=== PATIENT | female | born 1975 | race African-American/Black ===

== ENCOUNTER 2022-12-08 09:30 | Observation (INO) ==
[2022-12-08] MEDS ORDERED: ACETAMINOPHEN 325 MG TAB PO STA (10:45)
[2022-12-08] MEDS ORDERED: SODIUM CHLORIDE 0.9% 1000ML 2,000 ML IV ONE (10:45)
--- NOTE | 2022-12-08 10:58 | Emergency Department Note ---
Impression & Plan Fever, Tachycardia, Abdominal pain, Hyperglycemia ED Provider Note NAME: BHAVANI COLLINS AGE: 47 SEX: F : 1975 ARRIVES VIA: Walk-In INFORMANT: Patient ED PROVIDER(S): Dao Blanco DO CHIEF COMPLAINT: Fever and abdominal pain HPI: Patient is a 47-year-old female who presents to the ER for a fever and abdominal pain. Symptoms started this morning around 5 AM. Located in the right lower quadrant. Associate with nausea. She admits to diffuse myalgias and arthralgias. No headache or change in vision. No chest pain or shortness of breath currently. This morning when she was very cold and felt her heart racing she did feel little short of breath. No dysuria, urgency, or frequency. No other exacerbating or remitting factors. No history of diabetes. She is not sexually active. No vaginal bleeding or vaginal discharge. PAST MEDICAL HISTORY:See Below PAST SURGICAL HISTORY:See Below FAMILY HISTORY:See Below SOCIAL HISTORY:See Below HOME MEDICATIONS:See Below ALLERGIES:See Below VITALS:See Below PHYSICAL EXAMINATION: GENERAL: Sitting up in bed, alert, slightly shaking, ill-appearing EYE EXAM: normal conjunctiva. OROPHARYNX: Dry mucous membranes NECK: supple, no nuchal rigidity, no adenopathy, non-tender LUNGS: Clear to auscultation. Normal chest wall mechanics HEART: Tachycardic, S1 normal and S2 normal ABDOMEN: abdomen soft, TTP in RLQ, normo-active bowel sounds, no masses, no rebound or guarding. UPPER EXTREMITIES: upper extremities are grossly normal. LOWER EXTREMITIES: No pitting edema. NEURO EXAM: Normal sensorium, cranial nerves II-XII grossly intact, normal speech, no gross weakness of arms, no gross weakness of legs. MEDICAL DECISION MAKING: Patient is a 47-year-old female who presents to the ER for fever, tachycardia an d right lower quadrant abdominal pain associating with myalgias arthralgias and shaking chills. IV was established blood work was obtained. Labs show leukocytosis of 12.4 thousand. Mild anemia 10.7. BMP with mild hyponatremia at 133. Glucose was significantly elevated at 333. LFTs bilirubin was unremarkable. Lipase was normal. hCG was negative. UA without signs of infection. CT abdomen pelvis showed normal appendix and some abnormalities within the uterus. She is not sexually active. Denies any vaginal bleeding vaginal discharge. She was covered with IV Rocephin, 2 L of IV fluids. She was given Toradol and Tylenol. Did add on a BioFire as well as lactic acid and blood cultures following the negative CT of the belly as initially I thought this was going to be consistent with appendicitis. Patient admits to increased thirst and urination over the past 1 to 2 months. Do favor that she also has new onset diabetes. Discussed with hospitalist for further evaluation manageme nt treatment. Triage Nursing notes reviewed. Limited review of prior medical records performed Vital Signs: reviewed and remarkable for febrile and tachycardic Differential diagnosis: Differential diagnosis includes etiologies such as sepsis, UTI, pneumonia, metabolic, electrolyte abnormalities, cardiac sources, intracerebral event, toxicologic, neurological, as well as others were entertained. ER treatment provided: See below Diagnostics interpreted by me include EKG and cardiac monitoring as listed below: -Cardiac Monitoring: An order was placed for continuous cardiac monitoring. The monitor shows a rate of 110 with sinus rhythm. -ECG: Sinus rhythm minimal Left axis No PVCs Septal Q waves -Laboratory studies:Interpreted by me as stated above in MDM and shown below. Imaging studies: Xrays: As interpreted by me: Portable AP upright 1 view of the chest shows no focal infiltrate CTs show: CT abdomen pelvis showed abnormal uterus. Consultation(s): As described in [facility] Procedures:none Critical Care: None Past Med/Surg History Social History Smoking Status: Former smoker Tobacco Type: Cigarettes Feels Safe at Home: Yes Results & Data (ED) Vital Signs Vital Signs - 24 hr 12/08/22 09:57 12/08/22 12:09 Temperature 38.0 C H Temperature Source Skin Pulse Rate 119 H Pulse Rate [Apical] 100 H Respiratory Rate 20 18 Respiratory Effort / Characteristics Non-Labored Spontaneous Respiratory Depth Normal Respiratory Pattern Regular Blood Pressure 157/89 H Blood Pressure [Right Arm] 145/85 H Blood Pressure Mean 111 Blood Pressure Mean [Right Arm] 105 Pulse Oximetry 100 98 Oxygen Delivery Method Room Air Sepsis Recent Fever Within 48 Hours No Sepsis New/Unexplained Change in Mental Status N/A Sepsis Action Taken by Nursing No Action Required Laboratory Data 12/08/22 10:53 12/08/22 10:53 Lab Results 12/08/22 12/08/22 12/08/22 Range/Units 10:53 10:53 10:53 WBC 12.40 H (4.8-10.8) K/ul RBC 4.20 (4.20-5.40) M/uL Hgb 10.7 L (12.0-16.0) g/dl Hct 33.4 L (37.0-47.0) % MCV 79.5 L (80.0-100.0) fL MCH 25.5 (25.0-34.0) pg MCHC 32.0 (32.0-36.0) g/dL RDW Std Deviation 42.5 (36.4-46.3) fL RDW Coeff of Shikha 14.6 H (11.5-14.5) % Plt Count 463 H (130-400) K/uL MPV 10.1 (9.4-12.4) fL Immature Gran % (Auto) 0.4 % Neut % (Auto) 88.0 % Lymph % (Auto) 5.6 % [place] % (Auto) 5.7 % Eos % (Auto) 0.0 % Baso % (Auto) 0.3 % Neut # (Auto) 10.91 H (1.40-6.50) K/uL Lymph # (Auto) 0.69 L (1.2-3.4) K/uL [place] # (Auto) 0.71 H (0.11-0.59) K/uL Eos # (Auto) 0.00 (0-0.50) K/uL Baso # (Auto) 0.04 (0-0.2) K/uL Immature Gran # (Auto) 0.05 (0.01-0.20) K/uL Sodium 133 L (136-145) mmol/L Potassium 3.6 (3.5-5.1) mmol/L Chloride 99 (98-107) mmol/L Carbon Dioxide 23 (21-32) mmol/L Anion Gap 11 (3-11) BUN 8 (6-23) mg/dl Creatinine 0.63 (0.6-1.2) mg/dl Est Cr Clr Drug Dosing 126.1 ml/min Est GFR ( Amer) 124.7 ml/min Est GFR (Non-Af Amer) 107.6 ml/min BUN/Creatinine Ratio 12.7 (10-20) Glucose 333 H* (70-99(Fasting)) mg/dl POC Glucose (70-99) mg/dl Calcium 9.3 (8.6-10.3) mg/dl Total Bilirubin 0.5 (0.2-1.0) mg/dl AST 14 (13-39) U/L ALT 16 (7-52) U/L Alkaline Phosphatase 85 (34-104) U/L Total Protein 7.9 (6.0-8.3) gm/dl Albumin 4.4 (3.4-5.0) gm/dl Globulin 3.5 (2.5-4.0) gm/dl Albumin/Globulin Ratio 1.3 (0.9-2) Lipase 17 (11-82) U/L HCG, Qual Negative (Negative) Urine Color Urine Appearance (Clear) Urine pH (4.5-7.5) Ur Specific [place] (1.000-1.030) Urine Protein (Negative) Urine Glucose (UA) (Negative) Urine Ketones (Negative) Urine Blood (Negative) Urine Nitrite (Negative) Urine Bilirubin (Negative) Urine Urobilinogen (Negative) Ur Leukocyte Esterase (Negative) 12/08/22 12/08/22 Range/Units 11:28 13:13 WBC (4.8-10.8) K/ul RBC (4.20-5.40) M/uL Hgb (12.0-16.0) g/dl Hct (37.0-47.0) % MCV (80.0-100.0) fL MCH (25.0-34.0) pg MCHC (32.0-36.0) g/dL RDW Std Deviation (36.4-46.3) fL RDW Coeff of Shikha (11.5-14.5) % Plt Count (130-400) K/uL MPV (9.4-12.4) fL Immature Gran % (Auto) % Neut % (Auto) % Lymph % (Auto) % [place] % (Auto) % Eos % (Auto) % Baso % (Auto) % Neut # (Auto) (1.40-6.50) K/uL Lymph # (Auto) (1.2-3.4) K/uL [place] # (Auto) (0.11-0.59) K/uL Eos # (Auto) (0-0.50) K/uL Baso # (Auto) (0-0.2) K/uL Immature Gran # (Auto) (0.01-0.20) K/uL Sodium (136-145) mmol/L Potassium (3.5-5.1) mmol/L Chloride (98-107) mmol/L Carbon Dioxide (21-32) mmol/L Anion Gap (3-11) BUN (6-23) mg/dl Creatinine (0.6-1.2) mg/dl Est Cr Clr Drug Dosing ml/min Est GFR ( Amer) ml/min Est GFR (Non-Af Amer) ml/min BUN/Creatinine Ratio (10-20) Glucose (70-99(Fasting)) mg/dl POC Glucose 301 H* (70-99) mg/dl Calcium (8.6-10.3) mg/dl Total Bilirubin (0.2-1.0) mg/dl AST (13-39) U/L ALT (7-52) U/L Alkaline Phosphatase (34-104) U/L Total Protein (6.0-8.3) gm/dl Albumin (3.4-5.0) gm/dl Globulin (2.5-4.0) gm/dl Albumin/Globulin Ratio (0.9-2) Lipase (11-82) U/L HCG, Qual (Negative) Urine Color Yellow Urine Appearance Clear (Clear) Urine pH 7.0 (4.5-7.5) Ur Specific [place] 1.032 H (1.000-1.030) Urine Protein Negative (Negative) Urine Glucose (UA) 3+ H (Negative) Urine Ketones 2+ H (Negative) Urine Blood Negative (Negative) Urine Nitrite Negative (Negative) Urine Bilirubin Negative (Negative) Urine Urobilinogen Negative (Negative) Ur Leukocyte Esterase Negative (Negative) Administered Medications Discontinued Medications Acetaminophen (Acetaminophen 325 Mg Tab) 650 mg PO NOW STA Stop: 12/08/22 10:46 Last Admin: 12/08/22 10:57 Dose: 650 mg Documented By: ADAN Sodium Chloride (Nss 1000ml) 2,000 mls @ 999 mls/hr IV .Q2H1M ONE Stop: 12/08/22 12:45 Last Infusion: 12/08/22 13:24 Dose: 0 mls/hr Documented By: Admin: 12/08/22 10:57 Dose: 999 mls/hr Documented By: ADAN Cefoxitin Sodium (Mefoxin) 2,000 mg in 60 mls @ 100 mls/hr IV NOW STA Stop: 12/08/22 13:22 Last Admin: 12/08/22 13:06 Dose: Not Given Documented By: ADAN Ioversol (Optiray 320 100ml) 92 ml IV ONCE ONE Stop: 12/08/22 12:32 Last Admin: 12/08/22 12:31 Dose: 92 ml Documented By: SERA Ondansetron HCl (Ondansetron Inj 2 Mg/Ml 2 Ml Vial) 4 mg IV NOW STA Stop: 12/08/22 12:48 Last Admin: 12/08/22 13:06 Dose: Not Given Documented By: ADAN Imaging Data Radiologist's Impression: Chest X-Ray 12/08/22 10:19 SINGLE VIEW CHEST CLINICAL HISTORY: Epigastric abdominal pain. FINDINGS: 2 AP, portable, upright chest radiographs are obtained. No prior studies are available for comparison at the time of dictation. The cardiomediastinal silhouette is unremarkable. The lungs and pleural spaces are clear. No pneumothorax is seen. The bony thorax is grossly intact. IMPRESSION: No active disease in the chest. ACT 112: Negative or not required by law. Electronically signed by: Tray Borrego M.D. 12/08/2022 11:24 AM Abdomen/Pelvis CT 12/08/22 10:55 CT abd pelvis IV con only CLINICAL HISTORY: rlq abd pain fever TECHNIQUE: Helical axial images of the abdomen and pelvis were obtained and displayed. Automated dose lowering techniques and/or adjustment according to patient size were utilized for this exam. This exam was performed with intravenous contrast. CT DOSE: 1262.85 mGy.cm COMPARISON: None available at the time of this dictation. FINDINGS: Lower chest: No acute abnormality. Liver: Unremarkable. No focal lesions are seen. Gallbladder and biliary tree: No calcified gallstones. Normal caliber wall. No intra- or extrahepatic biliary ductal dilation. Pancreas: Unremarkable, no focal lesions. Spleen: Splenule is incidentally noted. Adrenals: Unremarkable. Kidneys and ureters: Unremarkable. Bladder: Unremarkable. Reproductive organs: Markedly enlarged uterus is seen with heterogeneous contents. Bowel: The appendix is normal. Fluid is in the esophagus. Lymph nodes Retroperitoneal: Unremarkable. Pelvic: Unremarkable. Mesenteric: Unremarkable. Peritoneum: Normal. Vessels: Unremarkable. Abdominal wall: Unremarkable. Bones: Degenerative changes in the visualized spine. IMPRESSION: 1. There is heterogeneity of the uterus. This likely reflects fibroid disease. Endometrium is unremarkable despite highly limited visualization. 2. Otherwise no acute abnormalities, the appendix is normal. ACT 112: Negative or not required by law. Electronically signed by: Sean Reid M.D. 12/08/2022 1:00 PM Discharge Plan Visit Data Chief Complaint: Illness Stated Complaint: RACING HEART, ACHEY, FEVER, SOB, WEAKNESS ED Provider: Dao Blanco Discharge Problem: Fever, Tachycardia, Abdominal pain, Hyperglycemia Forms Stand Alone Forms: [facility] Referrals Referrals: Rhonda Muniz D.O. [Primary Care Provider] -
[2022-12-08] MEDS ORDERED: KETOROLAC TROMETHAMINE 15 MG/ML VIAL IV ONE (10:59)
[2022-12-08 11:12] LABS: Basophils # (auto) 0.04 K/uL (0-0.2); Basophils % (auto) 0.3 %; Hematocrit (blood only) 33.4 % (37.0-47.0); Hemoglobin 10.7 g/dl (12.0-16.0); Immature Granulocytes # (auto) 0.05 K/uL (0.01-0.20); Immature Granulocytes % (auto) 0.4 %; Lymphocytes # (auto) 0.69 K/uL (1.2-3.4); Lymphocytes % (auto) 5.6 %; Mean Corpuscular Hemoglobin 25.5 pg (25.0-34.0); Mean Corpuscular Volume 79.5 fL (80.0-100.0); Mean Platelet Volume 10.1 fL (9.4-12.4); Monocytes # (auto) 0.71 K/uL (0.11-0.59); Monocytes % (auto) 5.7 %; Neutrophils # (auto) 10.91 K/uL (1.40-6.50); Platelet Count 463 K/uL (130-400); RDW Coefficient of Variation 14.6 % (11.5-14.5); RDW Standard Deviation 42.5 fL (36.4-46.3)
[2022-12-08 11:25] LABS: Pregnancy Test, Serum Negative (Negative)
--- NOTE | 2022-12-08 11:25 | XRay Report ---
SINGLE VIEW CHEST CLINICAL HISTORY: Epigastric abdominal pain. FINDINGS: 2 AP, portable, upright chest radiographs are obtained. No prior studies are available for comparison at the time of dictation. The cardiomediastinal silhouette is unremarkable. The lungs and pleural spaces are clear. No pneumothorax is seen. The bony thorax is grossly intact. IMPRESSION: No active disease in the chest. ACT 112: Negative or not required by law. Electronically signed by: Tray Borrego M.D. 12/08/2022 11:24 AM
[2022-12-08 11:50] LABS: Albumin Globulin Ratio 1.3 (0.9-2); Albumin Level 4.4 gm/dl (3.4-5.0); BUN Creatinine Ratio 12.7 (10-20); Bilirubin,Total 0.5 mg/dl (0.2-1.0); Calcium 9.3 mg/dl (8.6-10.3); Creatinine Clr Calc Pharmacy 126.1 ml/min; Est GFR (African American) 124.7 ml/min; Est GFR (Non-African American) 107.6 ml/min; Globulin 3.5 gm/dl (2.5-4.0); Potassium 3.6 mmol/L (3.5-5.1); Total Protein 7.9 gm/dl (6.0-8.3)
[2022-12-08 12:20] LABS: Appearance Urine Clear (Clear); Bilirubin Urine Negative (Negative); Blood Urine Negative (Negative); Color Urine Yellow; Glucose Urine UA 3+ (Negative); Ketones Urine 2+ (Negative); Leukocyte Esterase Urine Negative (Negative); Nitrite Urine Negative (Negative); Protein Urine Negative (Negative); Specific Gravity Urine 1.032 (1.000-1.030); Urobilinogen Urine Negative (Negative)
[2022-12-08] MEDS ORDERED: OPTIRAY 320 100ml IV ONE (12:31)
[2022-12-08] MEDS ORDERED: cefOXitin 2,000 MG/60 ML BAG IV STA (12:47)
[2022-12-08] MEDS ORDERED: ONDANSETRON INJ 2 MG/ML 2 ML VIAL IV STA (12:47)
--- NOTE | 2022-12-08 13:02 | CT Scan Report ---
CT abd pelvis IV con only CLINICAL HISTORY: rlq abd pain fever TECHNIQUE: Helical axial images of the abdomen and pelvis were obtained and displayed. Automated dose lowering techniques and/or adjustment according to patient size were utilized for this exam. This e xam was performed with intravenous contrast. CT DOSE: 1262.85 mGy.cm COMPARISON: None available at the time of this dictation. FINDINGS: Lower chest: No acute abnormality. Liver: Unremarkable. No focal lesions are seen. Gallbladder and biliary tree: No calcified gallstones. Normal caliber wall. No intra- or extrahepatic biliary ductal dilation. Pancreas: Unremarkable, no focal lesions. Spleen: Splenule is incidentally noted. Adrenals: Unremarkable. Kidneys and ureters: Unremarkable. Bladder: Unremarkable. Reproductive organs: Markedly enlarged uterus is seen with heterogeneous contents. Bowel: The appendix is normal. Fluid is in the esophagus. Lymph nodes Retroperitoneal: Unremarkable. Pelvic: Unremarkable. Mesenteric: Unremarkable. Peritoneum: Normal. Vessels: Unremarkable. Abdominal wall: Unremarkable. Bones: Degenerative changes in the visualized spine. IMPRESSION: 1. There is heterogeneity of the uterus. This likely reflects fibroid disease. Endometrium is unrema rkable despite highly limited visualization. 2. Otherwise no acute abnormalities, the appendix is normal. ACT 112: Negative or not required by law. Electronically signed by: Sean Reid M.D. 12/08/2022 1:00 PM
[2022-12-08] MEDS ORDERED: NovoLIN-R INSULIN PER UNIT CHARGE IV STA (13:32)
[2022-12-08] MEDS ORDERED: cefTRIAXone SODIUM 2,000 MG/70 ML BAG IV STA (13:40)
--- NOTE | 2022-12-08 14:21 | History & Physical Report ---
Date of Service December 08, 2022 Assessment & Plan (1) Fever: (2) Hyperglycemia: (3) Tachycardia: (4) Abdominal pain: (5) Anemia: Plan This is a 47 y/o female with a history of uterine fibroids who presented to the ED today with acute onset of fever, weakness, fatigue, and abdominal pain earlier this morning. Work-up in the ED revealed a blood glucose >300 as well as anemia with Hgb of 10.7. CT was negative for appendicitis but showed probable uterine fibroids, which confirms that she has a history of previously. Presentation consistent with new-onset DM - A1c is pending. Unclear potential infectious etiology of fever, leukocytosis, abdominal pain and nausea - BioFire and Lyme testing pending. - Observe in med telemetry overnight due to hyperglycemia, unexplained fever, tachycardia - Insulin subQ to get sugars under control - will need close outpatient f/u with PCP for longer term management - Consult healthcare educator for new diagnosis DM - NPO for now but once sugars improved, advance diet as tolerated to diabetic diet - IVF hydration - Anemia work-up to include iron studies, retic count, sickle cell trait Pt seen and reviewed with collaborating physician, Dr. Avelar. Plan of care discussed and as outlined above. Code Status: Full Code DVT Prophylaxis: SCDs for now Chong Quintana PA-C History of Present Illness Chief Complaint: fever, abdominal pain Primary Care Provider: Rhonda Muniz This is a 47 y/o female with a history of uterine fibroids presented to the ED today with fever, abdominal pain, and myalgias. Pt has been camping at a retreat center in the [facility] for the last ten days. This morning, she woke up not feeling well, achy. Then developed abdominal pain on the right side with associated nausea. Had some shortness of breath this morning that has since improved. Had palpitations but denies chest pain. Became very weak and tired and developed a fever so came to the ED for evaluation. She was around 150-200 people for the last several days including several children who may have been sick with non-specific symptoms. At present feeling somewhat improved though still some nausea. Had some vomiting in the CT scan today but none since getting back to her room. For the last few months, she notes a dry mouth and has drinking fluids excessively. Urinating more than usual as well. Feels like overheats easier than she did previously. Does not routinely follow with PCP - last visit 2.5 years ago. No prior history of diabetes. Notes that her RLE has pruritic but no significant erythema or rash - has been using itch cream. No known tick bites but was out in the [place]. No diarrhea. Menstrual cycle variable - heavy at times but not consistently. Told around age 41 that she was anemic. Took iron supplements previously but not taking at present. Allergies Allergy/AdvReac Type Severity Reaction Status Date / Time No Known Allergies Allergy Unverified 12/08/22 14:41 Home Medications Medication Instructions Recorded Confirmed Type No Known Home Medications 12/08/22 12/08/22 History Past Med/Surg History Medical History Uterine fibroid Surgical History History of removal of cyst Hx of eye surgery left with vision out of only one eye Family History Mother Diabetes Brother Diabetes Social History Smoking Status: Former smoker Tobacco Type: Cigarettes Hx Alcohol Use: No Hx Substance Use: No Feels Safe at Home: Yes Review of Systems Review of Systems: All systems reviewed & are unremarkable except as noted in HPI & below Constitutional: + fever, + fatigue, + weakness and + anorexia Ear, Nose, Mouth, Throat: no nasal congestion, no nasal discharge and no sore throat Respiratory: no cough Cardiovascular: + palpitations; no chest pain, no lightheadedness and no syncope Gastrointestinal: as per Subjective / HPI Genitourinary: + urinary frequency Musculoskeletal: + myalgia Integumentary: no yellowing of the skin Neurologic: + generalized weakness; no numbness and no dizziness Psychiatric: no depression and no anxiety Physical Exam Constitutional: well developed and well nourished; no acute distress Eyes: + anicteric sclerae ENMT: external ear and nose normal, oropharynx normal Neck: trachea midline Respiratory: no respiratory distress and no labored breathing Auscultation: lungs clear to auscultation bilaterally; no rales, no rhonchi and no wheezes Cardiovascular: Rate/Rhythm: regular rhythm and + tachycardic Vessels: radial pulses present; no JVD Extremities: no pedal edema Gastrointestinal (Abdomen): Inspection/Auscultation: normal bowel sounds; abdomen not distended Percussion/Palpation: + abdomen tender (mild RLQ) and abdomen soft Musculoskeletal: Head/Neck/Chest: normocephalic, head atraumatic and neck supple Skin: no jaundice Neurologic: normal touch/pain/proprioception and moves all extremities; no focal motor deficits and not confused Psychiatric: A+Ox3, euthymic affect Results & Data Results & Data Vital Signs (Past 12 Hours) Vital Signs Temp Pulse Pulse Resp BP BP Pulse Ox 12/08/22 12:09 100 H 18 145/85 H 98 12/08/22 09:57 38.0 C H 119 H 20 157/89 H 100 O2 Del Method 12/08/22 12:09 12/08/22 09:57 Room Air Laboratory Results Laboratory Results - last 24 hr 12/08/22 12/08/22 12/08/22 10:53 10:53 10:53 WBC 12.40 H RBC 4.20 Hgb 10.7 L Hct 33.4 L MCV 79.5 L MCH 25.5 MCHC 32.0 RDW Std Deviation 42.5 RDW Coeff of Shikha 14.6 H Plt Count 463 H MPV 10.1 Immature Gran % (Auto) 0.4 Neut % (Auto) 88.0 Lymph % (Auto) 5.6 [place] % (Auto) 5.7 Eos % (Auto) 0.0 Baso % (Auto) 0.3 Neut # (Auto) 10.91 H Lymph # (Auto) 0.69 L [place] # (Auto) 0.71 H Eos # (Auto) 0.00 Baso # (Auto) 0.04 Immature Gran # (Auto) 0.05 Sodium 133 L Potassium 3.6 Chloride 99 Carbon Dioxide 23 Anion Gap 11 BUN 8 Creatinine 0.63 Est Cr Clr Drug Dosing 126.1 Est GFR ( Amer) 124.7 Est GFR (Non-Af Amer) 107.6 BUN/Creatinine Ratio 12.7 Glucose 333 H* POC Glucose Calcium 9.3 Total Bilirubin 0.5 AST 14 ALT 16 Alkaline Phosphatase 85 Total Protein 7.9 Albumin 4.4 Globulin 3.5 Albumin/Globulin Ratio 1.3 Lipase 17 HCG, Qual Negative Urine Color Urine Appearance Urine pH Ur Specific [place] Urine Protein Urine Glucose (UA) Urine Ketones Urine Blood Urine Nitrite Urine Bilirubin Urine Urobilinogen Ur Leukocyte Esterase 12/08/22 12/08/22 11:28 13:13 WBC RBC Hgb Hct MCV MCH MCHC RDW Std Deviation RDW Coeff of Shikha Plt Count MPV Immature Gran % (Auto) Neut % (Auto) Lymph % (Auto) [place] % (Auto) Eos % (Auto) Baso % (Auto) Neut # (Auto) Lymph # (Auto) [place] # (Auto) Eos # (Auto) Baso # (Auto) Immature Gran # (Auto) Sodium Potassium Chloride Carbon Dioxide Anion Gap BUN Creatinine Est Cr Clr Drug Dosing Est GFR ( Amer) Est GFR (Non-Af Amer) BUN/Creatinine Ratio Glucose POC Glucose 301 H* Calcium Total Bilirubin AST ALT Alkaline Phosphatase Total Protein Albumin Globulin Albumin/Globulin Ratio Lipase HCG, Qual Urine Color Yellow Urine Appearance Clear Urine pH 7.0 Ur Specific [place] 1.032 H Urine Protein Negative Urine Glucose (UA) 3+ H Urine Ketones 2+ H Urine Blood Negative Urine Nitrite Negative Urine Bilirubin Negative Urine Urobilinogen Negative Ur Leukocyte Esterase Negative Diagnostic Findings Chest X-Ray 12/08/22 10:19 SINGLE VIEW CHEST CLINICAL HISTORY: Epigastric abdominal pain. FINDINGS: 2 AP, portable, upright chest radiographs are obtained. No prior studies are available for comparison at the time of dictation. The cardiomediastinal silhouette is unremarkable. The lungs and pleural spaces are clear. No pneumothorax is seen. The bony thorax is grossly intact. IMPRESSION: No active disease in the chest. Abdomen/Pelvis CT 12/08/22 10:55 CT abd pelvis IV con only CLINICAL HISTORY: rlq abd pain fever TECHNIQUE: Helical axial images of the abdomen and pelvis were obtained and displayed. Automated dose lowering techniques and/or adjustment according to patient size were utilized for this exam. This exam was performed with intravenous contrast. CT DOSE: 1262.85 mGy.cm COMPARISON: None available at the time of this dictation. FINDINGS: Lower chest: No acute abnormality. Liver: Unremarkable. No focal lesions are seen. Gallbladder and biliary tree: No calcified gallstones. Normal caliber wall. No intra- or extrahepatic biliary ductal dilation. Pancreas: Unremarkable, no focal lesions. Spleen: Splenule is incidentally noted. Adrenals: Unremarkable. Kidneys and ureters: Unremarkable. Bladder: Unremarkable. Reproductive organs: Markedly enlarged uterus is seen with heterogeneous contents. Bowel: The appendix is normal. Fluid is in the esophagus. Lymph nodes Retroperitoneal: Unremarkable. Pelvic: Unremarkable. Mesenteric: Unremarkable. Peritoneum: Normal. Vessels: Unremarkable. Abdominal wall: Unremarkable. Bones: Degenerative changes in the visualized spine. IMPRESSION: 1. There is heterogeneity of the uterus. This likely reflects fibroid disease. Endometrium is unremarkable despite highly limited visualization. 2. Otherwise no acute abnormalities, the appendix is normal. Medications Administered Discontinued Medications Acetaminophen (Acetaminophen 325 Mg Tab) 650 mg PO NOW STA Stop: 12/08/22 10:46 Last Admin: 12/08/22 10:57 Dose: 650 mg Documented By: ADAN Sodium Chloride (Nss 1000ml) 2,000 mls @ 999 mls/hr IV .Q2H1M ONE Stop: 12/08/22 12:45 Last Infusion: 12/08/22 13:24 Dose: 0 mls/hr Documented By: Admin: 12/08/22 10:57 Dose: 999 mls/hr Documented By: ADAN Cefoxitin Sodium (Mefoxin) 2,000 mg in 60 mls @ 100 mls/hr IV NOW STA Stop: 12/08/22 13:22 Last Admin: 12/08/22 13:06 Dose: Not Given Documented By: ADAN Ioversol (Optiray 320 100ml) 92 ml IV ONCE ONE Stop: 12/08/22 12:32 Last Admin: 12/08/22 12:31 Dose: 92 ml Documented By: SERA Ondansetron HCl (Ondansetron Inj 2 Mg/Ml 2 Ml Vial) 4 mg IV NOW STA Stop: 12/08/22 12:48 Last Admin: 12/08/22 13:06 Dose: Not Given Documented By: ADAN Code Status & VTE Plan VTE Prophylaxis Plan VTE Prophylaxis will be ordered: Yes Supervising Physician Co-Signing Physician Notes I was present Chong Quintana PA-C during the history and exam. I discussed the case with Chong Quintana PA-C and agree with the findings and plan as documented in the H&P. In short, Ms. Zuleyma Vogel is a 47 year old woman with remote history of menorrhagia 2/2 possible fibroids c/b chronic anemia who presented due to feeling generally unwell, with subjective fever and weakness. Patient endorses ongoing history of polydipsia and polyuria x 1 month. Patient notes family history of DMII. Labs notable for hyperglycemia and ketones in urine, however, no gap acidosis or low bicarb on inital labs. Aggressive IVF, NPO, and basal insulin regimen with pharmacy follow up/healthcare educator on consult.
[2022-12-08] MEDS ORDERED: KETOROLAC TROMETHAMINE 15 MG/ML VIAL ONE (14:55)
[2022-12-08 16:10] LABS: Adenovirus PCR Not Detected (NotDetected); Bordetella parapertussis PCR Not Detected (NotDetected); Bordetella pertussis PCR Not Detected (NotDetected); Chlamydia pneumoniae PCR Not Detected (NotDetected); Coronavirus 229E PCR Not Detected (NotDetected); Coronavirus CoV-2 (COVID19)PCR Not Detected (NotDetected); Coronavirus HKU1 PCR Not Detected (NotDetected); Coronavirus NL63 PCR Not Detected (NotDetected); Coronavirus OC43PCR Not Detected (NotDetected); Human Metapneumovirus PCR Not Detected (NotDetected); Influenza A PCR Not Detected (NotDetected); Influenza B PCR Not Detected (NotDetected); Mycoplasma pneumoniae PCR Not Detected (NotDetected); Parainfluenza Virus 1 PCR Not Detected (NotDetected); Parainfluenza Virus 2 PCR Not Detected (NotDetected); Parainfluenza Virus 3 PCR Not Detected (NotDetected); Parainfluenza Virus 4 PCR Not Detected (NotDetected); Respiratory Syncytial VirusPCR Not Detected (NotDetected); Rhinovirus/Enterovirus PCR Not Detected (NotDetected)
[2022-12-08 16:12] LABS: Lyme Ab IgG w/WB Rflx Negative (Negative); Lyme Ab IgM w/WB Rflx Negative (Negative)
[2022-12-08] MEDS: SODIUM CHLORIDE 0.9% 1000ML 1,000 ML IV SCH (16:27)
[2022-12-08 16:47] LABS: Estimated Average Glucose 309 mg/dl; Hemoglobin A1C 12.4 % (4.5-5.6)
[2022-12-08] MEDS ORDERED: PHARMACY GLYCEMIC MGMT CONSULT PRN (18:06)
[2022-12-08] MEDS ORDERED: GLUCOSE 40% GEL 15 GM TUBE PO PRN (18:06)
[2022-12-08] MEDS ORDERED: GLUCAGON FOR INJ 1 MG VIAL SQ PRN (18:06)
[2022-12-08] MEDS ORDERED: GLUCOSE 10 TAB/TUBE PO PRN (18:06)
[2022-12-08] MEDS ORDERED: CARBOHYDRATES FOR HYPOGLYCEMIA PO PRN (18:06)
[2022-12-08] MEDS ORDERED: DEXTROSE 50% 50 ML SYRINGE IV PRN (18:06)
[2022-12-08] MEDS ORDERED: LANTUS PER UNIT CHARGE SC ONE (18:30)
[2022-12-08] MEDS: INSULIN ASPART PER UNIT CHARGE SC SCH ×2 (19:16→21:08)
[2022-12-09] MEDS: INSULIN ASPART PER UNIT CHARGE SC SCH ×7 (00:34→23:48)
[2022-12-09] MEDS: SODIUM CHLORIDE 0.9% 1000ML 1,000 ML IV SCH (00:35)
--- NOTE | 2022-12-09 05:53 | Electrocardiogram Report ---
Test Reason : Blood Pressure : / mmHG Vent. Rate : 109 BPM Atrial Rate : 109 BPM P-R Int : 152 ms QRS Dur : 094 ms QT Int : 332 ms P-R-T Axes : 043 -22 050 degrees QTc Int : 447 ms Sinus tachycardia Possible Left atrial enlargement Incomplete right bundle branch block Left ventricular hypertrophy ( R in aVL , Larry product ) Cannot rule out Septal infarct , age undetermined Abnormal ECG No previous ECGs available Confirmed by Flavio Salazar ([id number]) on 12/09/2022 5:52:48 AM Referred By: REFERRED SELF Confirmed By:Flavio Salazar
[2022-12-09 07:14] LABS: Basophils # (auto) 0.03 K/uL (0-0.2); Basophils % (auto) 0.3 %; Eosinophils # (auto) 0.01 K/uL (0-0.50); Eosinophils % (auto) 0.1 %; Hematocrit (blood only) 27.5 % (37.0-47.0); Hemoglobin 8.8 g/dl (12.0-16.0); Immature Granulocytes # (auto) 0.03 K/uL (0.01-0.20); Immature Granulocytes % (auto) 0.3 %; Lymphocytes # (auto) 1.69 K/uL (1.2-3.4); Lymphocytes % (auto) 18.2 %; Mean Corpuscular Hemoglobin 25.4 pg (25.0-34.0); Mean Corpuscular Volume 79.3 fL (80.0-100.0); Mean Platelet Volume 9.9 fL (9.4-12.4); Monocytes # (auto) 0.93 K/uL (0.11-0.59); Neutrophils # (auto) 6.62 K/uL (1.40-6.50); Neutrophils % (auto) 71.1 %; Platelet Count 356 K/uL (130-400); RDW Coefficient of Variation 14.9 % (11.5-14.5); Red Blood Count 3.47 M/uL (4.20-5.40); Reticulocyte % 1.8 % (0.5-2.0); Reticulocytes # 0.06 10^6/uL (0.02-0.10); White Blood Count 9.31 K/ul (4.8-10.8)
[2022-12-09 10:56] LABS: Folate (Folic Acid),Ser orPlas > 22.30 ng/ml (>5.38)
[2022-12-09 10:57] LABS: Vitamin B12 946 pg/ml (180-914)
--- NOTE | 2022-12-09 11:26 | Pharmacy Report ---
Pharmacy Glycemic Short Note 2 - Date of Service December 09, 2022 - Glycemic Short BSG Results (Last 24 hours): 12/08/22 12/08/22 12/08/22 10:53 13:13 19:07 Glucose 333 H* POC Glucose 301 H* 260 H 12/08/22 12/09/22 12/09/22 21:02 00:24 04:49 Glucose POC Glucose 253 H 175 H 190 H 12/09/22 08:19 Glucose POC Glucose 174 H OUTPATIENT ANTIDIABETIC REGIMEN: * n/a ASSESSMENT: * 47 year old female with hx of uterine fibroids, presenting with fever/abdominal pain and myalgias. No prior history of diabetes reported. A1c ~12% on admission. Was started on basal/bolus insulin yesterday as BSGs in 300s. * Received total of 33 units of insulin yesterday, of which 20 units were basal insulin (patient NPO) * Fasting BSG 174 mg/dL - diet orders now entered. Plan to increase to 20-25 units of basal insulin for today based upon BSG * Continue same novolog for now PLAN FOR INPATIENT GLYCEMIC CONTROL: * Hold outpatient oral diabetes medications * Basal insulin * Lantus 20-25 units daily * Bolus insulin * NovoLog per scale ACHS or Q6hrs while NPO * Goal Range: Low 120 mg/dL - High 160 mg/dL * Correction Factor: 25 mg/dL/unit * Nutritional / Prandial insulin per carb ratio of 1 unit per 8 grams CHO consumed
[2022-12-09] MEDS ORDERED: IRON SUCROSE 200 MG in 0.9 % SODIUM CHLORIDE 100 ML IV ONE (12:00)
[2022-12-09] MEDS ORDERED: LANTUS PER UNIT CHARGE SC ONE (12:30)
--- NOTE | 2022-12-09 14:25 | Hospitalist Progress Note ---
Date of Service December 09, 2022 Assessment & Plan (1) Fever: (2) Hyperglycemia: (3) Tachycardia: (4) Abdominal pain: (5) Anemia: Plan 47 y/o female with a history of uterine fibroids who presented to the ED 12/08 with acute onset of fever, weakness, fatigue, and abdominal pain earlier on the morning of arrival. Work-up in the ED revealed a blood glucose >300 as well as anemia with Hgb of 10.7. CT was negative for appendicitis but showed probable uterine fibroids, which confirms that she has a history of previously. Presentation consistent with new-onset DM - A1c elevated. She is being managed for the following: New onset diabetes mellitus: Patient presents with polyuria and polydipsia for several months. A1c of 12.4 at presentation. nurse educator consult. Glycemic pharmacy consult. We will possibly use insulin and metformin upon discharge with close uptitration, patient to establish with diabetic clinic on discharge. Patient has been made aware. Counseled regarding lifestyle modification. Acute fever: Tmax recorded at 38 C at presentation, ROS has been negative including no neck pain or acute changes in her bowel or bladder habits or any concern of genital infection. Bio fire negative, Lyme's screen negative. CXR and CTAP with no new acute findings. WBC elevated at 12.4 K at presentation, patient did receive Rocephin at presentation. Pro-Raymundo has been negative, temperature has been better, WBC trending down, no source of infection could be identified. Will await blood culture for at least 48 hours to result. Continue Rocephin for now. Anemia: Patient unsure if she has blood in the stool or black stool. We will get FOBT. Hemoglobin 10.7 at presentation, down trended to 8.8 today. Iron level low, patient agreeable for iron transfusion, discharged on p.o. iron. Folate level and vitamin B12 level WNL. test negative. Full code DVT prophylaxis: SCDs Admission and Anticipated Discharge Date Admission Date: December 08, 2022 Subjective Patient seen and examined at bedside. Patient was lying in bed, on room air, reports feeling better but he still feels weak. Patient reports he has been feeling polydipsia and polyuria for several months now. Patient counseled about new diagnosis of diabetes, healthcare educator has been consulted. Patient denies any new cough or chest pain or acute changes in her bowel or bladder habits or any open wounds or any concern of genital infection or neck pain or low back pain or headache. Physical Exam Physical Exam: GENERAL: Alert and oriented x3. NAD, on RA. HEENT: No pallor, no icterus. Pupils equal, round and reactive to light. Oral mucosa moist. NECK: No JVD, no neck masses. HEART: S1 and S2 heard. Regular rate and rhythm. No murmur, no gallop. RESPIRATORY SYSTEM: Normal AP diameter. No accessory muscle use. No wheezing, no crackles. ABDOMEN: Soft, bowel sounds present, nontender, no distention. CENTRAL NERVOUS SYSTEM: No facial droop. Speech is clear. Obeys simple commands. Moves extremities. EXTREMITIES: No edema, no erythema seen. Results & Data Results & Data Vital Signs (Past 12 Hours) Vital Signs Temp Pulse Pulse Pulse Resp BP Pulse Ox 12/09/22 12:20 37.7 C H 96 H 18 131/82 99 12/09/22 07:38 37.7 C H 92 H 18 128/81 98 12/09/22 07:14 88 12/09/22 04:13 37.1 C 93 H 18 135/84 99 O2 Del Method 12/09/22 12:20 Room Air 12/09/22 07:38 Room Air 12/09/22 07:14 12/09/22 04:13 Room Air
[2022-12-09] MEDS: cefTRIAXone SODIUM 2,000 MG in DEXTROSE 5% 50 ML IV SCH (17:27)
[2022-12-09] MEDS: ACETAMINOPHEN 325 MG TAB PO PRN (17:39)
[2022-12-09] MEDS ORDERED: LANTUS PER UNIT CHARGE SC SCH (21:00)
[2022-12-10] MEDS: INSULIN ASPART PER UNIT CHARGE SC SCH ×5 (04:11→20:36)
[2022-12-10 07:17] LABS: Hematocrit (blood only) 27.9 % (37.0-47.0); Hemoglobin 9.1 g/dl (12.0-16.0); Mean Corpuscular Hemoglobin 25.3 pg (25.0-34.0); Mean Corpuscular Hgb Conc 32.6 g/dL (32.0-36.0); Mean Corpuscular Volume 77.7 fL (80.0-100.0); Platelet Count 366 K/uL (130-400); Red Blood Count 3.59 M/uL (4.20-5.40); White Blood Count 7.54 K/ul (4.8-10.8)
[2022-12-10 07:28] LABS: BUN Creatinine Ratio 10.3 (10-20); Calcium 8.4 mg/dl (8.6-10.3); Phosphorus 2.5 mg/dl (2.5-4.9); Potassium 3.1 mmol/L (3.5-5.1)
--- NOTE | 2022-12-10 07:36 | Pharmacy Report ---
Pharmacy Glycemic Short Note 2 - Date of Service December 10, 2022 - Glycemic Short BSG Results (Last 24 hours): 12/09/22 12/09/22 12/09/22 08:19 12:00 16:57 Glucose POC Glucose 174 H 278 H 144 H 12/09/22 12/09/22 12/10/22 20:24 23:31 04:09 Glucose POC Glucose 203 H 94 159 H 12/10/22 06:09 Glucose 158 H POC Glucose OUTPATIENT ANTIDIABETIC REGIMEN: * n/a ASSESSMENT: 12/10 * Patient received total of 62 units of insulin yesterday, of which ~32 units were basal insulin * Fasting BSG 158 mg/dL - will continue with 30 units of basal once daily in AM * Will continue current novolog scale, however may loosen later today if BSGs improving 12/09 * 47 year old female with hx of uterine fibroids, presenting with fever/abdominal pain and myalgias. No prior history of diabetes reported. A1c ~12% on admission. Was started on basal/bolus insulin yesterday as BSGs in 300s. * Received total of 33 units of insulin yesterday, of which 20 units were basal insulin (patient NPO) * Fasting BSG 174 mg/dL - diet orders now entered. Plan to increase to 20-25 units of basal insulin for today based upon BSG * Continue same novolog for now PLAN FOR INPATIENT GLYCEMIC CONTROL: * Hold outpatient oral diabetes medications * Basal insulin * Lantus 30 units once daily in AM * Bolus insulin * NovoLog per scale ACHS or Q6hrs while NPO * Goal Range: Low 120 mg/dL - High 160 mg/dL * Correction Factor: 20 mg/dL/unit * Nutritional / Prandial insulin per carb ratio of 1 unit per 6 grams CHO consumed
[2022-12-10] MEDS ORDERED: IRON SUCROSE 400 MG in SODIUM CHLORIDE 0.9% 250 ML IV ONE (08:26)
[2022-12-10] MEDS ORDERED: POTASSIUM CHLORIDE CRTAB 20 MEQ TABCR PO STA (08:30)
[2022-12-10] MEDS: LANTUS PER UNIT CHARGE SC SCH (09:38)
[2022-12-10] MEDS: cefTRIAXone SODIUM 2,000 MG in DEXTROSE 5% 50 ML IV SCH (16:19)
--- NOTE | 2022-12-10 17:32 | Hospitalist Progress Note ---
Date of Service December 10, 2022 Assessment & Plan (1) Fever: (2) Hyperglycemia: (3) Tachycardia: (4) Abdominal pain: (5) Anemia: Plan 47 y/o female with a history of uterine fibroids who presented to the ED 12/08 with acute onset of fever, weakness, fatigue, and abdominal pain earlier on the morning of arrival. Work-up in the ED revealed a blood glucose >300 as well as anemia with Hgb of 10.7. CT was negative for appendicitis but showed probable uterine fibroids, which confirms that she has a history of previously. Presentation consistent with new-onset DM - A1c elevated. She is being managed for the following: New onset diabetes mellitus: Patient presents with polyuria and polydipsia for several months. A1c of 12.4 at presentation. art educator consult. Glycemic pharmacy consult. We will possibly use insulin and metformin upon discharge with close uptitration, patient to establish with diabetic clinic on discharge. Patient has been made aware. Counseled regarding lifestyle modification. art educator: 1.) Lantus Solostar Pen. 2.) Metformin ER. 3.) Pen Needle 32 gauge /32- to inject 1x/day (must indicate injection frequency; no brand for coverage). 4.) OneTouch Verio Test Strips- to check 3x/day (must indicate testing frequency for coverage). 5.) OneTouch Delica Lancets 33 gauge- to check 3x/day (must indicate testing frequency for coverage). Acute fever: Tmax recorded at 38 C at presentation, ROS has been negative including no neck pain or acute changes in her bowel or bladder habits or any concern of genital infection. Bio fire negative, Lyme's screen negative. CXR and CTAP with no new acute findings. WBC elevated at 12.4 K at presentation, patient did receive Rocephin at presentation. Pro-Raymundo has been negative, patient had temperature of despite 2 days of antibiotic, finally temperature is getting better, WBC trending down, no source of infection could be identified. Suspicion for tickborne illness persist, will send Anaplasma and Babesia. Blood culture no growth for 48 hours, will follow. Continue Rocephin for now. Likely will discharge on Doxy to cover for suspected tickborne illness as the patient had fever for 2 to 3 days and improved on Rocephin. Anemia: Patient unsure if she has blood in the stool or black stool. FOBT remains on collected. Hemoglobin 10.7 at presentation, stable around 9. Iron level low, patient agreeable for iron transfusion, discharge on p.o. iron. Folate level and vitamin B12 level WNL. test negative. Patient getting iron transfusion while in hospital. Full code DVT prophylaxis: SCDs Possible DC tomorrow if no further fever. Admission and Anticipated Discharge Date Admission Date: December 09, 2022 Subjective Patient seen and examined at bedside. Patient was lying in bed, on room air, reports feeling better significantly today. Patient reports he has been feeling polydipsia and polyuria for several months now. Patient counseled about new diagnosis of diabetes, childbirth educator has been consulted. Patient denies any new cough or chest pain or acute changes in her bowel or bladder habits or any open wounds or any concern of genital infection or neck pain or low back pain or headache. Suspicion for tickborne illness persist, patient is febrile despite 2 days of antibiotic until yesterday evening, temperature improving today, Anaplasma and Babesia serology sent. Will follow. Physical Exam Physical Exam: GENERAL: Alert and oriented x3. NAD, on RA. HEENT: No pallor, no icterus. Pupils equal, round and reactive to light. Oral mucosa moist. NECK: No JVD, no neck masses. HEART: S1 and S2 heard. Regular rate and rhythm. No murmur, no gallop. RESPIRATORY SYSTEM: Normal AP diameter. No accessory muscle use. No wheezing, no crackles. ABDOMEN: Soft, bowel sounds present, nontender, no distention. CENTRAL NERVOUS SYSTEM: No facial droop. Speech is clear. Obeys simple commands. Moves extremities. EXTREMITIES: No edema, no erythema seen. Results & Data Results & Data Vital Signs (Past 12 Hours) Vital Signs Temp Pulse Pulse Resp BP Pulse Ox O2 Del Method 12/10/22 15:25 84 12/10/22 15:21 37.1 C 89 18 158/90 H 100 Room Air 12/10/22 11:08 36.7 C 81 16 161/95 H 100 Room Air 12/10/22 07:36 37.2 C 83 18 154/85 H 99 Room Air 12/10/22 07:20 80
[2022-12-10] MEDS ORDERED: DOCUSATE SODIUM/SENNA 50/8.6MG TAB PO SCH (20:00)
[2022-12-10] MEDS ORDERED: DOCUSATE SODIUM/SENNA 50/8.6MG TAB PO PRN (20:07)
[2022-12-10] MEDS ORDERED: DOCUSATE SODIUM/SENNA 50/8.6MG TAB PO STA (20:07)
[2022-12-10] MEDS: ACETAMINOPHEN 325 MG TAB PO PRN (23:44)
[2022-12-11 07:49] LABS: Hematocrit (blood only) 31.8 % (37.0-47.0); Mean Corpuscular Hemoglobin 24.8 pg (25.0-34.0); Mean Corpuscular Hgb Conc 31.4 g/dL (32.0-36.0); Mean Corpuscular Volume 78.7 fL (80.0-100.0); Mean Platelet Volume 9.3 fL (9.4-12.4); Platelet Count 424 K/uL (130-400); RDW Coefficient of Variation 15.1 % (11.5-14.5); RDW Standard Deviation 42.9 fL (36.4-46.3); Red Blood Count 4.04 M/uL (4.20-5.40); White Blood Count 7.21 K/ul (4.8-10.8)
[2022-12-11 08:14] LABS: Potassium 3.3 mmol/L (3.5-5.1)
[2022-12-11 08:15] LABS: Creatinine Clr Calc Pharmacy 156.3 ml/min; Est GFR (African American) 134.5 ml/min; Est GFR (Non-African American) 116.1 ml/min; Magnesium 1.9 mg/dl (1.7-2.4); Phosphorus 3.2 mg/dl (2.5-4.9)
[2022-12-11] MEDS: LANTUS PER UNIT CHARGE SC SCH (09:35)
[2022-12-11] MEDS: INSULIN ASPART PER UNIT CHARGE SC SCH ×2 (09:35→13:22)
[2022-12-11] MEDS ORDERED: POLYETHYLENE (MIRALAX) 17 GM PACK PO ONE (12:12)
--- NOTE | 2022-12-11 13:20 | Discharge Summary ---
Date of Service December 11, 2022 Admission HPI Per Admitting Provider This is a 47 y/o female with a history of uterine fibroids presented to the ED today with fever, abdominal pain, and myalgias. Pt has been camping at a retreat center in the [facility] for the last ten days. This morning, she woke up not feeling well, achy. Then developed abdominal pain on the right side with associated nausea. Had some shortness of breath this morning that has since improved. Had palpitations but denies chest pain. Became very weak and tired and developed a fever so came to the ED for evaluation. She was around 150-200 people for the last several days including several children who may have been sick with non-specific symptoms. At present feeling somewhat improved though still some nausea. Had some vomiting in the CT scan today but none since getting back to her room. For the last few months, she notes a dry mouth and has drinking fluids excessively. Urinating more than usual as well. Feels like overheats easier than she did previously. Does not routinely follow with PCP - last visit 2.5 years ago. No prior history of diabetes. Notes that her RLE has pruritic but no significant erythema or rash - has been using itch cream. No known tick bites but was out in the [facility]. No diarrhea. Menstrual cycle variable - heavy at times but not consistently. Told around age 41 that she was anemic. Took iron supplements previously but not taking at present. Admission Exam Per Admitting Provider Constitutional: well developed and well nourished; no acute distress Eyes: + anicteric sclerae ENMT: external ear and nose normal, oropharynx normal Neck: trachea midline Respiratory: no respiratory distress and no labored breathing Auscultation: lungs clear to auscultation bilaterally; no rales, no rhonchi and no wheezes Cardiovascular: Rate/Rhythm: regular rhythm and + tachycardic Vessels: radial pulses present; no JVD Extremities: no pedal edema Gastrointestinal (Abdomen): Inspection/Auscultation: normal bowel sounds; abdomen not distended Percussion/Palpation: + abdomen tender (mild RLQ) and abdomen soft Musculoskeletal: Head/Neck/Chest: normocephalic, head atraumatic and neck supple Skin: no jaundice Neurologic: normal touch/pain/proprioception and moves all extremities; no focal motor deficits and not confused Psychiatric: A+Ox3, euthymic affect Principal Diagnosis New onset diabetes mellitus Acute fever, possibility of tickborne illness Anemia Discharge Exam GENERAL: Alert and oriented x3. NAD, on RA. HEENT: No pallor, no icterus. Pupils equal, round and reactive to light. Oral mucosa moist. NECK: No JVD, no neck masses. HEART: S1 and S2 heard. Regular rate and rhythm. No murmur, no gallop. RESPIRATORY SYSTEM: Normal AP diameter. No accessory muscle use. No wheezing, no crackles. ABDOMEN: Soft, bowel sounds present, nontender, no distention. CENTRAL NERVOUS SYSTEM: No facial droop. Speech is clear. Obeys simple commands. Moves extremities. EXTREMITIES: No edema, no erythema seen. Discharge Data Allergies Allergy/AdvReac Type Severity Reaction Status Date / Time No Known Allergies Allergy Unverified 12/08/22 14:41 Consultations 12/08/22 13:52 ED Decision to Admit Stat Ordered Studies 12/08/22 10:55 CT Abd and Pelvis [CT abd pelvis IV con only] Stat Hospital Course (1) Fever: (2) Hyperglycemia: (3) Tachycardia: (4) Abdominal pain: (5) Anemia: Plan 47 y/o female with a history of uterine fibroids who presented to the ED 12/08 with acute onset of fever, weakness, fatigue, and abdominal pain earlier on the morning of arrival. Work-up in the ED revealed a blood glucose >300 as well as anemia with Hgb of 10.7. CT was negative for appendicitis but showed probable uterine fibroids, which confirms that she has a history of previously. Presentation consistent with new-onset DM - A1c elevated. She was managed for the following: New onset diabetes mellitus: Patient presents with polyuria and polydipsia for several months. A1c of 12.4 at presentation. educator senior clinical consult. Glycemic pharmacy consult. Pt has not followed up with any PCP in the past several years. She needs PCP and diabetic clinic set up. She has been made aware of importance of close f/u with diabetic clinic for close monitoring/uptitration of her diabetic meds. At this point she is being discharged on easier regimen of metformin ER 500 mg daily and lantus 35 units daily. Pt feels overwhelmed with the amount of information she is receiving. She will need uptitration of her metformin ER and might need sliding scale; she is made aware to f/u with diabetic clinic within a week time and work on this. A1C in 3 months. Counseled regarding lifestyle modification. educator senior clinical: 1.) Lantus Solostar Pen. 2.) Metformin ER. 3.) Pen Needle 32 gauge /32- to inject 1x/day (must indicate injection frequency; no brand for coverage). 4.) OneTouch Verio Test Strips- to check 3x/day (must indicate testing frequency for coverage). 5.) OneTouch Delica Lancets 33 gauge- to check 3x/day (must indicate testing frequency for coverage). Acute fever: Tmax recorded at 38 C at presentation, ROS has been negative including no neck pain or acute changes in her bowel or bladder habits or any concern of genital infection. Bio fire negative, Lyme's screen negative. CXR and CTAP with no new acute findings. WBC elevated at 12.4 K at presentation, patient did receive Rocephin at presentation. Pro-Raymundo has been negative, patient had temperature despite 2 days of antibiotic, finally temperature is getting better, WBC trending down, no source of infection could be identified. Suspicion for tickborne illness persist,pending Anaplasma and Babesia. Blood culture no growth for 48 hours. Continue Rocephin for now - to doxy on dc to complete course for tickborne illness, pt was informed and she was agreeable for this plan. Anemia: Patient unsure if she has blood in the stool or black stool. FOBT remains on collected. Hemoglobin 10.7 at presentation, stable around 9. Iron level low, patient agreeable for iron transfusion, discharge on p.o. iron. Folate level and vitamin B12 level WNL. test negative. Patient g etting iron transfusion while in hospital. Full code DVT prophylaxis: SCDs Patient being discharged home with following instruction at the point of discharge: Follow-up with your primary care physician within a week time and likely you will need labs CBC/CMP/magnesium/phosphorus. Establish with diabetic clinic upon discharge, you will be discharged on metformin 500 mg daily, it will soon need to be uptitrated. You will be discharged on long-acting insulin once a day. Maintain a log of your fingerstick glucose at home to take to your diabetic clinic, depending on your fingerstick glucose levels your insulin dose needs to be modified/uptitrated. You might end up following very closely with diabetic clinic in the first few weeks. For concern of tickborne illness given recent camping, you will be discharged on doxycycline to complete the course of 14 days. Apply sunscreen lotion while out in the sun while taking doxycycline. Take doxycycline with adequate fluid, stay upright for half an hour after that. You are also found to have anemia while in the hospital, your FOBT was unable to be collected because of lack of bowel movement. You received iron transfusion. You will be discharged on oral iron therapy. You will need FOBT tested, coordinate with your PCP office. You will likely need GI doctor evaluation based on the results. You will need repeat iron profile in 3 months time, coordinate with the PCP office to set up the test. Take your medications as prescribed. Please make sure that you are able to get your medications today by calling your pharmacy before you leave the hospital so that your treatment continuity is not broken. Home Health Attestation I certify that this patient is under my care and that I, or a physicians executive assistant to president working with me, had a face to-face encounter that meets the home health obly-[id number] encounter requirements with this patient. The encounter with the patient was in whole, or in part, for the following medical condition, which is the primary reason for home health care (list medical condition): I certify that, based on my findings, the following services are medically necessary home health services: My clinical findings support the need for the above services because: Further, I certify that my clinical findings support that this patient is homebound (i.e. absences from home require considerable and taxing effort and are for medical reasons or voodoo services or infrequently or of short duration when for other reasons) because: Certification for Home Health Services: Based on the above findings, I certify that this patient is confined to the home and needs intermittent fci care, physical therapy and/or speech therapy or continues to need occupational therapy. The patient is under my care, and I have initiated the establishment of the plan of care. This patient will be followed by a physician who will periodically review the plan of care. Total Time Total Time Spent Total Time Spent (In Minutes): 45 Discharge Plan Discharge Items Patient Disposition: Home - Self-Care Reason For Visit: FEVER,ABD PAIN,HYPERGLYCEMIA Discharge Diagnosis: New onset diabetes mellitus Acute fever, possibility of tickborne illness Anemia Activity: Resume your previous activity Non-emergency contact: Primary Care Provider Call non-emergency contact if: you have any medication questions, your symptoms worsen and your temperature is above 101 Follow-up/Referrals: Rhonda Muniz D.O. [Primary Care Provider] - Diet: Carb Consistent or DM2, Heart Healthy and Low Sodium (2gm) Addtl Attending Provider Instructions: Follow-up with your primary care physician within a week time and likely you will need labs CBC/CMP/magnesium/phosphorus. Establish with diabetic clinic upon discharge, you will be discharged on metformin 500 mg daily, it will soon need to be uptitrated. You will be dischar ged on long-acting insulin once a day. Maintain a log of your fingerstick glucose at home to take to your diabetic clinic, depending on your fingerstick glucose levels your insulin dose needs to be modified/uptitrated. You might end up following very closely with diabetic clinic in the first few weeks. For concern of tickborne illness given recent camping, you will be discharged on doxycycline to complete the course of 14 days. Apply sunscreen lotion while out in the sun while taking doxycycline. Take doxycycline with adequate fluid, stay upright for half an hour after that. You are also found to have anemia while in the hospital, your FOBT was unable to be collected because of lack of bowel movement. You received iron transfusion. You will be discharged on oral iron therapy. You will need FOBT tested, coordinate with your PCP office. You will likely need GI doctor evaluation based on the results. You will need repeat iron profile in 3 months time, coordinate with the PCP office to set up the test. Take your medications as prescribed. Please make sure that you are able to get your medications today by calling your pharmacy before you leave the hospital so that your treatment continuity is not broken. Pending Studies at Discharge: Yes Stand-Alone Forms: My Yapp[employer], Smoking Cessation Medications and DC Order Prescriptions: New sennosides-docusate sodium [Senokot-S] 8.6-50 mg Tablet 1 tab PO QAM PRN (Reason: constipation) 7 Days Qty: 7 0RF metformin 500 mg tablet extended release 24 hr 500 mg PO DAILY Qty: 30 0RF ferrous gluconate 324 mg (37.5 mg iron) tablet 324 mg PO DAILY Qty: 30 0RF doxycycline hyclate 100 mg tablet 100 mg PO BID 11 Days Qty: 22 0RF Probiotic 3 billion cell capsule 3,000 mmu cells PO DAILY 14 Days Qty: 14 0RF Rx Instructions: administer with a meal insulin glargine [Lantus Solostar U-100 Insulin] 100 unit/mL (3 mL) insulin pen 35 unit subcut DAILY 30 Days Qty: 10.5 0RF (DME) pen needle, diabetic [Pen Needle] 32 gauge x 5/32" needle See Rx Instructions .Route Qty: 100 0RF Rx Instructions: once a day (DME) OneTouch Verio test strips Strip See Rx Instructions .Route Qty: 100 0RF Rx Instructions: three times a day (DME) lancets [OneTouch Delica Plus Lancet] 33 gauge misc See Rx Instructions .Route Qty: 100 0RF Rx Instructions: 3 times a day Discharge Orders: Discharge Order (Routine); Ordered 12/11/22 Ordered By: Emy Cordero Admission Data Admit Date/Time: 12/09/22 14:14 Attending Provider: Emy Cordero Admit Provider: Sujatha Avelar Primary Care Provider: Rhonda Muniz Other Providers: Sujatha Avelar
[2022-12-15 01:23] LABS: Babesia microti DNA Not Detected (Not Detected)
[2022-12-15 15:01] LABS: Ehrlichia chaff DNA Bld Negative (Negative)
== END 2022-12-11 15:30 | disposition home or self-care (01) | DRG 639 ==
LOC: ED 09:30 → EDINP 09:30 → SUATTDRO 14:13 → 2N 18:37